=== PATIENT | female | born 1960 | race Caucasian/White ===

== ENCOUNTER → 2018-04-16 07:44 | Outpatient (CLI) | payer OTHER, SELFPAY ==
--- NOTE | 2018-04-16 07:47 | BI_ITS ---
MAMMOGRAPHY - BILATERAL SCREENING REASON FOR EXAM: Female, 57 years old. Routine annual screening examination. PERTINENT HISTORY: Grandmother with breast cancer. Remote right stereotactic breast biopsy. TECHNIQUE: Digital bilateral breast fred (3D mammographic acquisition) in the CC and MLO projections. 2-D mediolateral oblique (MLO) and craniocaudad (CC) views of both breasts were obtained. CAD: Full Field Digital Mammography with Computer Added Detection was performed. COMPARISON: Comparison is made with prior study dated March 23, 2017 and March 17, 2016. FINDINGS: Breast Composition: There are scattered areas of fibroglandular density. There are no dominant masses or suspicious calcifications. A tissue clip marker is once again seen in the upper medial aspect of the right breast. Stable bilateral benign-appearing axillary lymph nodes. No other significant abnormalities are identified. There has been no significant change since the prior study. BI/SCREENING MAMM (CAD), BILAT IMPRESSION: Stable bilateral screening mammogram. Yearly follow-up mammogram recommended. (A) ASSESSMENT CATEGORY: BIRADS Category 2: Benign. A letter regarding these results will be sent to the patient by the facility within 30 days. Approximately 10% of breast cancers are not detected by mammography. A normal mammogram should not delay biopsy of a clinically suspicious abnormality. [id number] Electronically Signed: Dave Dillon MD at 9:07 EST , Service support ,
== END ==
PROVIDERS: Family Provider Internal Medicine; PCP Internal Medicine; Referring Provider Internal Medicine; Visit Provider Internal Medicine
DX: Z12.31 Encounter for screening mammogram for malignant neoplasm of breast (principal)
CPT/HCPCS: 77063; 77067

== ENCOUNTER → 2019-04-18 08:05 | Outpatient (CLI) | payer OTHER, SELFPAY ==
--- NOTE | 2019-04-18 08:18 | BI_ITS ---
MAMMOGRAPHY - BILATERAL SCREENING REASON FOR EXAM: Female, 58 years old. Routine annual screening examination. PERTINENT HISTORY: Grandmother with breast cancer. Remote right stereotactic breast biopsy. TECHNIQUE: Digital bilateral breast marissa (3D mammographic acquisition) in the CC and MLO projections. 2-D mediolateral oblique (MLO) and craniocaudad (CC) views of both breasts were obtained. CAD: Full Field Digital Mammography with Computer Added Detection was performed. COMPARISON: Comparison is made with prior examination dated April 16, 2018 and March 23, 2017. FINDINGS: Breast Composition: There are scattered areas of fibroglandular density. There are no dominant masses or suspicious calcifications. A tissue clip marker is once again seen in the upper slightly medial aspect of the right breast. Stable bilateral benign-appearing axillary lymph nodes. No other significant abnormalities are identified. There has been no significant change since the prior study. BI/SCREEN MAMM (CAD) W/MARISSA BILAT IMPRESSION: Stable bilateral screening mammogram. Yearly follow-up mammogram recommended. (A) ASSESSMENT CATEGORY: BIRADS Category 2: Benign. A letter regarding these results will be sent to the patient by the facility within 30 days. Approximately 10% of breast cancers are not detected by mammography. A normal mammogram should not delay biopsy of a clinically suspicious abnormality. [id number] Electronically Signed: Dave Dillon, at 9:05 EST , Service support ,
== END ==
PROVIDERS: PCP Internal Medicine; Referring Provider Internal Medicine; Visit Provider Internal Medicine
DX: Z12.31 Encounter for screening mammogram for malignant neoplasm of breast (principal)
CPT/HCPCS: 77063; 77067

== ENCOUNTER 2019-07-23 07:46 | Outpatient (RCR) | payer OTHER, SELFPAY ==
--- NOTE | 2019-08-04 11:15 | HP.FCE ---
Floor (Occasional 1-33% of Day): 30# Floor (Frequent 34-66% of Day): 15# Floor (Constant 67-100% of Day): NA Floor PDL: Light-Medium Knee (Occasional 1-33% of Day): 25# Knee (Frequent 34-66% of Day): 12# Knee (Constant 67-100% of Day): NA Knee PDL: Light Waist (Occasional 1-33% of Day): 20# Waist (Frequent 34-66% of Day): 10# Waist (Constant 67-100% of Day): NA Waist PDL: Light Shoulder (Occasional 1-33% of Day): 15# Shoulder (Frequent 34-66% of Day): 8# Shoulder (Constant 67-100% of Day): NA Shoulder PDL: Sedentary-Light Overhead (Occasional 1-33% of Day): 5# Overhead (Frequent 34-66% of Day): NA Overhead (Constant 67-100% of Day): NA Overhead PDL: Sedentary Comments: Pt demonstrates with poor lifting mechanics throughout. pt demonstrates lift with keeping items away from body and extending back during shoulder and overhead level lifts Bending: Frequent Ability (34-66% of day) Squatting: Occasional Ability (1-33% of day) Comments: with external support Kneeling: Occasional Ability (1-33% of day) Comments: low occasional ability with external support Reaching out: Occasional Ability (1-33% of day) Reaching up: Occasional Ability (1-33% of day) Comments: within pts shoulder ROM Sitting: Frequent Ability (34-66% of day) Walking: Occasional Ability (1-33% of day) Comments: low occasional ability Standing: Occasional Ability (1-33% of day) Comments: low occasional ability Duration Sedentary Sedentary Light Light Light Medium Medium Medium Heavy Very Heavy Heavy Occasional (0-33% of day) Frequent (34-66% of day) Constant (67-100% of day) 10 # Negligible Negligible 15 # 8 # Negligible 20 # 10# Negli. 35 # 18 # 7 # 50 # 25 # 10 # 75 # 100 # >100 # 38 # 50 # >50 # 15 # 20 # >20 # Height: 1.63 m Weight:: 65.771 kg Hand Dominance: right Medical History Including Restrictions: Pt states she broke her leg as a child (in fourth grade) causing right leg deformities. 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 Pt states she was dx with right knee arthritis about 5 years ago. Pt states she was dx with arthritis in her neck in 2018 and bulging disc at C6. Pt states she is going to have pain injections tomorrow for the 1st time. Pt states she has been in physical therapy for 8 session with no success in symptoms. pt states she has seen a chiropractor for at least 8 years seeing them on monthly basis. Massage therapy for 20 years off and on more recently since she has had neck problem was seeing her massage therapist every two weeks. the physical therapy has not been successful in decreasing pts pain. Diagnoses: Right arthritis dx in 2014. cervical spine dx in 2018. Hypothyroidism Dx in 1999. Borderline hypertension Dx in 2019. Restless leg syndrome dx in 2016. Fibromyalgia dx in about 2017 Symptoms: Neck pain. Bilateral shoulder and elbow. Bilateral leg pain. Back pain low back and thoracic spine. Bilateral hip pain. Sleep disturbance Pain: Pt reports her pain currently is 4/10. Pt did not take pain medication. pt states she takes Tylenol and tramadol. pt takes a muscle relaxer. 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 Pt states she works about 25 hours a week or two and a half days a week. Pt states she works 10 hour days. Pt states she spaces her client?s times out so she can sit and rest between clients to get 30 min break between each client. Pt job includes standing 30-45min with each client use of arms and hands on a frequent bases. Behavioral: Pt was cooperative throughout the session. At times objective measurements were not consistent with observation of functional mobility. ADLS: Pt she lives in a ranch home with her - has 3 entry steps one rail with entry in through the garage - laundry in basement with full flight with one rail. pt denies difficulty climbing steps. pt states she is IND with all ADLs and IADL, has walk-in shower with [address] IND[address] all cleaning and cooking, Pt states her and her go to the grocery store together. Pt states spouse does not work outside of the house. pt states her does the yard work as uneven ground makes it difficult for pts. Physical Examination: pt demonstartes at standing a right knee 30* valgus placing right foot/ankle at pronated postion and right hip adducted. pt ambulates with right knee brace. Pt demo with head forward rolled shoulders posture- this posture limits shoulder flextion. ROM: Pt demonstrates with ROM within functional limits grossly throughout. Bilateral shoulder flex at 145* Strength: pt demo with bilateral UB MMT 4-/5 grossly throughout. Pt demo with bilateral LE MMT 4/5 grossly throughout Right Acid Etch Operator Strength Average: 43.33 Right Acid Etch Operator Strength Percentile: 5% Left Acid Etch Operator Strength Average: 40.00 Left Acid Etch Operator Strength Percentile: 6% Right Lateral Pinch Average: 5.66 Right Lateral Pinch Percentile: <10% Left Lateral Pinch Average: 6.00 Left Lateral Pinch Percentile: <10% Right Tripod Pinch Average: 6.00 Right Tripod Pinch Percentile: 10% Left Tripod Pinch Average: 8.66 Left Tripod Pinch Percentile: 25% Sensation: Denies Fine Motor: 9 hole peg. right 21.21 seconds =50% for her age. Left 19.14 seconds= 75% for her age Balance: No loss of balance noted during assessment Bending: Pt demonstrated the ability to bend forward three times, ten times and ten times rapidly. Pt C/O of a pulling in her low back with no change in pain level /10. Pt can bend forward on a frequent ability Squatting: Pt demonstrated the ability to squat three times, ten times and ten times rapidly. pt required external support during this non material handling activity. Pt can squat on an occasional ability with external support provided Kneeling: Pt demonstrated the ability to kneel three times only with external support. Pt did lean heavily on tabletop with this task. Pt can kneel on low occasional ability Reaching out/up: Pt demonstrated the ability to reach up/out three times, ten times and ten times rapidly. Pt demo limited motion and reported discomfort with motion but states discomfort goes away after she stops the motion. Pt can reach out/up on an occasional ability Walking: Pt ambulates with antalgic gait with shortened step distance. pt ambulated for 8min and requested to stop. Pt reported increase low back pain 6/10. Pt can ambulate on a low occasional ability Standing: PT demo the ability to stand for 5 min shifting her body weight. pt can stand on a occasional ability with shifting her body weight. Sitting: Pt demo the ability to sit for 45 min with no apparent or expressed discomfort pt can sit on a frequent ability Climbing Stairs: Pt demo the ability to ascent and descend 10 steps with use of rail and reciprocal step pattern with good ability. Floor Lift: Pt demonstrated the ability to lift 30# maximally from floor level Knee Lift: pt demonstrated the ability to lift 25# maximally from knee level Waist Lift: Pt demonstrated the ability to lift 20# from waist level Shoulder Lift: Pt demonstrated zoran ability to lift 15# from shoulder level Overhead Lift: Pt demonstrated the ability to lift 5# overthead level Carrying: pt demonstrated the ability to carry 15# for 40 feet with good ability Comments: Pt demonstrates with poor lifting mechanics throughout. pt demonstrates lift with keeping items away from body and extending back during shoulder and overhead level lifts
--- NOTE | 2019-11-06 07:36 | HP.OT.NRP ---
MAYLIN Vazquez SANIA was seen in my office for initial evaluation on . The following Plan of Care was established for this patient: This patient was last seen in our office 07/23/19. Pertinent comments regarding their Occupational therapy will appear below: Pt seen for FCE only At this point I will be discontinuing this patient from occupational therapy. I would be happy to see this patient again in the future if found appropriate by the physician. Thank you! Funmilayo Evans, OTR/L, CHT
== END 2019-07-23 19:00 | disposition home or self-care (01) ==
LOC: OT 07:46
PROVIDERS: PCP Internal Medicine; Referring Provider Internal Medicine; Visit Provider Internal Medicine
DX: M25.561 Pain in right knee (principal); M25.551 Pain in right hip; M54.5 Low back pain; M54.2 Cervicalgia
CPT/HCPCS: 97750

== ENCOUNTER → 2020-04-19 08:01 | Outpatient (CLI) | payer OTHER, SELFPAY ==
--- NOTE | 2020-04-19 08:03 | BI_ITS ---
MAMMOGRAPHY - BILATERAL SCREENING REASON FOR EXAM: Female, 59 years old. Routine annual screening examination. PERTINENT HISTORY: Grandmother with breast cancer. Remote right stereotactic breast biopsy. TECHNIQUE: Digital bilateral breast marissa (3D mammographic acquisition) in the CC and MLO projections. 2-D mediolateral oblique (MLO) and craniocaudad (CC) views of both breasts were obtained. CAD: Full Field Digital Mammography with Computer Added Detection was performed. COMPARISON: Comparison is made to prior study dated 04/18/2019 and 04/16/2018. FINDINGS: Breast Composition: There are scattered areas of fibroglandular density. There are no dominant masses or suspicious calcifications. Stable benign-appearing bilateral axillary lymph nodes. A tissue clip marker is once again seen in the upper slightly medial aspect of the right breast. No other significant abnormalities are identified. There has been no significant change since the prior study. BI/SCRN MAMM (CAD)W/MARISSA BILAT IMPRESSION: Stable bilateral screening mammogram. Yearly follow-up mammogram recommended. (A) ASSESSMENT CATEGORY: BIRADS Category 2: Benign. A letter regarding these results will be sent to the patient by the facility within 30 days. Approximately 10% of breast cancers are not detected by mammography. A normal mammogram should not delay biopsy of a clinically suspicious abnormality. [id number] Electronically Signed: Dave Dillon MD at 9:14 EST , Service support ,
== END ==
PROVIDERS: PCP Internal Medicine; Referring Provider Internal Medicine; Visit Provider Internal Medicine
DX: Z12.31 Encounter for screening mammogram for malignant neoplasm of breast (principal); Z80.3 Family history of malignant neoplasm of breast
CPT/HCPCS: 77063; 77067

== ENCOUNTER → 2024-06-04 | Outpatient (CLI) | payer MEDICARE, SELFPAY ==
--- NOTE | 2024-06-04 12:55 | NEURO ---
NCS and/or EMG Patient Report Ordering Doctor: Lyle Christian DATE OF SERVICE: 06/04/24 Sia presents with pain and numbness, intermittently in the right hand. Electrodiagnostic findings: Right median motor nerve demonstrates normal distal latency, amplitude with reduced conduction velocity. Normal right ulnar motor response, including conduction across the elbow. Normal right median and right ulnar F?waves. Prolonged right median sensory latency at the wrist. Needle EMG testing was performed the right upper limb. All muscles tested showed no evidence of denervation with normal motor unit action potentials. Electrodiagnostic impression: This is an abnormal study in the right upper limb 1. Electrodiagnostic findings suggestive of right-sided median mononeuropathy. This consistent with a mild right carpal tunnel syndrome. 2. No electrodiagnostic evidence is noted for cervical radiculopathy. Multi Select Codes Neurology Neurology Interp Codes: 27041-62 Musc test done w/n test comp (interp) and 42220-52 Nrv cndj test 7-8 studies (interp)
== END | disposition home or self-care (01) ==
LOC: PSN 09:38
PROVIDERS: PCP Internal Medicine; Referring Provider Internal Medicine; Visit Provider Internal Medicine
DX: R20.0 Anesthesia of skin (principal)
CPT/HCPCS: 95886; 95910